=== PATIENT | male | born 1940 | race Caucasian/White ===

== ENCOUNTER 2018-11-18 07:48 | Day surgery (SDC) | payer MEDICARE ==
[~2018-11-18] VITALS: Ht 177.8 cm; Wt 108.1 kg
[~2018-11-18 07:48] MED LIST: ALLO300T PO; AMLO-150 PO; APIX5TAB PO; ATOR20TA37 PO; CARV-39 PO; CLOP75TA52 PO; LOSA25TA25 PO; METF1000 PO; NITR0.4T28 SL; NITR1PAT22 TD; OMEP-110 PO; PANT40TA3 PO; RANO500T2 PO
[2018-11-18] MEDS ORDERED: LACTATED RINGERS 1,000 ML IV SCH (08:31)
[2018-11-18 08:35] VITALS: BP 169/83
[2018-11-18] MEDS ORDERED: MIDAZOLAM 1 MG/ML, 2ML ONE (09:51)
[2018-11-18] MEDS ORDERED: FENTANYL PF 100 MCG/2ML ONE (09:52)
[2018-11-18] MEDS ORDERED: PROPOFOL 50 ML ONE (09:53)
[2018-11-18] MEDS ORDERED: ACETAMINOPHEN 325 MG TABLET PO PRN (10:30)
[2018-11-18] MEDS ORDERED: FENTANYL PF 100 MCG/2ML IV PRN (10:30)
[2018-11-18] MEDS ORDERED: HALOPERIDOL 5 MG/ML IV PRN (10:30)
[2018-11-18] MEDS ORDERED: ONDANSETRON 2MG/ML, 2ML IV PRN (10:30)
[2018-11-18] MEDS ORDERED: hydrALAzine 20 MG/ML, 1ML IV PRN (10:30)
[2018-11-18] MEDS ORDERED: OXYcodone 5 MG/5 ML ORAL.SOL UDC PO PRN (10:30)
[2018-11-18] MEDS ORDERED: MEPERIDINE/PF 25MG/0.5ML IVPush PRN (10:30)
[2018-11-18] MEDS ORDERED: HYDROmorphone 2 MG/ML, 1ML IVPush PRN (10:30)
== END 2018-11-18 11:35 | disposition home or self-care (01) ==
LOC: OUT 07:48
PROVIDERS: ATTEND Internal Medicine Gastroenterology
DX: K25.7 Chronic gastric ulcer without hemorrhage or perforation (principal); K21.9 Gastro-esophageal reflux disease without esophagitis; K31.7 Polyp of stomach and duodenum; K29.60 Other gastritis without bleeding; E11.9 Type 2 diabetes mellitus without complications; I25.2 Old myocardial infarction; E78.00 Pure hypercholesterolemia, unspecified; I10 Essential (primary) hypertension; Z79.899 Other long term (current) drug therapy; Z86.010 Personal history of colon polyps; Z98.890 Other specified postprocedural states; Z95.1 Presence of aortocoronary bypass graft; Z87.891 Personal history of nicotine dependence; Z72.89 Other problems related to lifestyle; Z79.84 Long term (current) use of oral hypoglycemic drugs
CPT/HCPCS: 43239; 43251; 43259; 82962; 88305; 93005; J2250; J2704; J3010